=== PATIENT | female | born 1995 | race Caucasian/White ===

== ENCOUNTER → 2016-04-24 | Outpatient (CLI) | payer OTHER ==
[2016-04-24 13:25] LABS: ALBUMIN 4.1 GM/DL (3.2-5.2); ALBUMIN/GLOBULIN RATIO 1.14 (1.00-1.93); ALKALINE PHOSPHATASE 71 U/L (45-117); ALT/SGPT 30 U/L (12-78); ANION GAP 7 MEQ/L (8-16); AST/SGOT 15 U/L (15-37); BILIRUBIN,TOTAL 0.6 MG/DL (0.2-1.0); BLOOD UREA NITROGEN 7 MG/DL (7-18); CALCIUM LEVEL 8.8 MG/DL (8.5-10.1); CARBON DIOXIDE LEVEL 29 MEQ/L (21-32); CHLORIDE LEVEL 105 MEQ/L (98-107); CREATININE FOR GFR 0.85 MG/DL (0.55-1.02); FREE T4 1.02 NG/DL (0.76-1.46); GLOMERULAR FILTRATION RATE > 60.0 (>60); GLUCOSE, FASTING 90 MG/DL (70-105); SODIUM LEVEL 141 MEQ/L (136-145); TOTAL PROTEIN 7.7 GM/DL (6.4-8.2)
== END ==
LOC: M LAB 11:52
PROVIDERS: ATTEND Family Medicine
DX: Z13.29 Encounter for screening for other suspected endocrine disorder (principal)

== ENCOUNTER → 2016-06-04 | Outpatient (CLI) | payer OTHER ==
[2016-06-04 18:37] LABS: BASO % 0.1 % (0.0-1.0); EOS # 0.1 K/mm3 (0.0-0.50); LARGE UNSTAINED CELL # 0.1 K/mm3 (0.0-0.4); LARGE UNSTAINED CELL % 1.2 % (0.0-4.0); LYMPH # 2.4 K/mm3 (1.5-6.5); LYMPH % 22.2 % (24.0-44.0); MEAN CORPUSCULAR HEMOGLOBIN 30.2 pg (27.0-33.0); MEAN CORPUSCULAR HGB CONC 34.7 g/dl (32.0-36.5); MONO # 0.4 K/mm3 (0.0-0.8); MONO % 3.5 % (0.0-5.0); NEUTROPHILS # 7.5 K/mm3 (1.8-7.7); PLATELET COUNT, AUTOMATED 224 k/mm3 (150-450); RED CELL DISTRIBUTION WIDTH 12.3 % (11.5-14.5); WHITE BLOOD COUNT 10.4 K/mm3 (4.0-10.0)
[2016-06-05 14:18] LABS: CONTROL LINE INT CTR LINE PRESENT; HIV SCRN NEGATIVE (NEGATIVE); HIV SCRN1 NEGATIVE (NEGATIVE)
[2016-06-06 10:45] LABS: HBsAg Prenatal NEGATIVE (NEGATIVE)
== END ==
LOC: M LAB 17:16
PROVIDERS: ATTEND Specialist
DX: Z34.81 Encounter for supervision of other normal pregnancy, first trimester (principal)

== ENCOUNTER → 2016-08-06 | Outpatient (CLI) | payer OTHER ==
--- NOTE | 2016-08-07 04:18 | REP ---
Clinical: Anatomical evaluation. Comparison: None . Findings: Examination demonstrates a single live intrauterine in breech presentation. motion is identified by technologist. Placenta is noted anteriorly and grade zero without evidence for placenta previa or abruption. [place] raises the possibility of uterine synechia and along the left lateral margin of the lower uterine segment. Amniotic fluid volume is normal. Cervix measures 3.9 cm in length and appears closed. No evidence for nuchal cord. Gestational age by current measurements 18 weeks 2 days with VALERIA 01/05/2017 . FHR equals 153 beats per minute. BPD 4.3 cm 19 weeks 0 days HC 15.0 cm 18 weeks 0 days AC 12.7 cm 18 weeks 2 days FL 2.8 cm 18 weeks 3 days HL 2.7 cm 18 weeks 3 days HC/AC ratio 1.18 Estimated weight 236 grams ( 46th percentile). Anatomical assessment demonstrates normal structures including cranium, choroid plexus, cavum, cerebellum/posterior fossa, facial features, lungs, four-chamber heart/ventricular outflow tracts, diaphragm, stomach, cord insertion/three-vessel cord, kidneys/bladder, spine, and extremities. Impression: 1. Single live intrauterine in breech presentation. 2. Uterine synechia cannot be excluded and may warrant followup. 3. Facial profile inadequately evaluated. Remainder of the anatomical assessment is complete and normal. Signed by Viral Rodriguez MD 08/07/2016 04:10 A
== END ==
LOC: M SMT 09:46
PROVIDERS: ATTEND Specialist
DX: Z34.82 Encounter for supervision of other normal pregnancy, second trimester (principal)

== ENCOUNTER 2016-08-11 16:07 | Emergency (ER) | payer OTHER ==
[~2016-08-11] VITALS: Ht 160 cm; Wt 75.7 kg
[2016-08-11] MEDS ORDERED: ACETAMINOPHEN 325 MG TAB PO ONE (19:30)
[2016-08-11 20:48] VITALS: BP 126/56
--- NOTE | 2016-08-12 08:34 | REP ---
Clinical: Acute trauma. Evaluate . Technique: Limited obstetrical ultrasound using curved array transducer along with color Doppler evaluation. Findings: Ultrasound examination demonstrates a single live intrauterine in breech presentation. motion is appreciated. heart rate equals 155 beats per minute. Placenta is noted posteriorly and grade zero without evidence for placenta previa. Cervix measures 3 cm in length and appears closed. Amniotic fluid volume is normal (DIANA equals 12.0 cm). Incidental note is made of a uterine synechia along the left side of the uterus. Nuchal cord cannot be excluded. Impression: Single live intrauterine in breech presentation. No gross abnormalities or evidence for injury. Nuchal cord cannot be excluded. 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 Signed by Viral Rodriguez MD 08/12/2016 08:26 A
--- NOTE | 2016-08-12 17:30 | ED PDOC ---
Post-Departure Follow-Up dr finch faxed formal report of ob us for fu Jethro Ramsey MD August 12, 2016 17:30
== END 2016-08-11 20:50 | disposition home or self-care (01) ==
LOC: M ED 17:27
DX: O9A.212 Injury, poisoning and certain other consequences of external causes complicating pregnancy, second trimester (principal); S39.91XA Unspecified injury of abdomen, initial encounter; W22.8XXA Striking against or struck by other objects, initial encounter; Y92.002 Bathroom of unspecified non-institutional (private) residence as the place of occurrence of the external cause; Y93.E1 Activity, personal bathing and showering; Y99.8 Other external cause status; Z3A.19 19 weeks gestation of pregnancy

== ENCOUNTER → 2016-08-18 | Outpatient (CLI) | payer OTHER ==
--- NOTE | 2016-08-18 09:20 | REP ---
Clinical: Anatomical evaluation. Comparison: 08/11/2016 . Findings: Examination demonstrates a single live intrauterine in breech presentation. motion is identified by technologist. Placenta is noted posteriorly and grade zero without evidence for placenta previa or abruption. The placental tip measures 3.2 cm from the closed internal os. A synechia along the left lower uterine segment is again identified. Amniotic fluid volume is normal. Cervix measures 3.5 cm in length and appears closed. Nuchal cord cannot be excluded. Gestational age by LMP 19 weeks 6 days with VALERIA 01/06/2017 . Gestational age by current measurements 20 weeks 0 days with VALERIA 01/05/2017 . FHR equals 157 beats per minute. Anatomical assessment demonstrates normal structures including cranium, choroid plexus, cavum, cerebellum/posterior fossa, facial features, lungs, diaphragm, stomach, cord insertion/three-vessel cord, kidneys/bladder, spine, and extremities. Impression: 1. Single live intrauterine in breech presentation. 2. Nuchal cord cannot be excluded. 3. Synechia along the left lower uterine segment is again identified. 4. In conjunction with prior examination, anatomical assessment is complete and normal. Signed by Viral Rodriguez MD 08/18/2016 09:13 A
== END ==
LOC: M SMT 08:05
PROVIDERS: ATTEND Specialist
DX: Z34.82 Encounter for supervision of other normal pregnancy, second trimester (principal)

== ENCOUNTER → 2016-10-08 | Outpatient (CLI) | payer OTHER ==
[~2016-10-08] MED LIST: ACET50TA PO; IBUP-1114 PO; PRENTAB9 PO
[2016-10-09 10:04] LABS: BASO % 0.3 % (0.0-1.0); EOS # 0.2 K/mm3 (0.0-0.50); LARGE UNSTAINED CELL # 0.2 K/mm3 (0.0-0.4); LARGE UNSTAINED CELL % 1.9 % (0.0-4.0); LYMPH # 2.2 K/mm3 (1.5-6.5); LYMPH % 17.9 % (24.0-44.0); MEAN CORPUSCULAR HEMOGLOBIN 31.6 pg (27.0-33.0); MEAN CORPUSCULAR HGB CONC 35.1 g/dl (32.0-36.5); MONO # 0.6 K/mm3 (0.0-0.8); MONO % 5.2 % (0.0-5.0); NEUTROPHILS % 72.7 % (36.0-66.0); PLATELET COUNT, AUTOMATED 227 k/mm3 (150-450)
== END ==
LOC: M SMT 13:56
PROVIDERS: ATTEND Advanced Practice Midwife
DX: Z34.83 Encounter for supervision of other normal pregnancy, third trimester (principal)

== ENCOUNTER → 2016-12-11 | Outpatient (REF) | payer OTHER | LOC: M LAB REF 17:14 | PROVIDERS: ATTEND Advanced Practice Midwife | DX: Z34.83 Encounter for supervision of other normal pregnancy, third trimester (principal) ==

== ENCOUNTER 2017-01-06 01:58 | Inpatient (IN) | payer OTHER ==
[2017-01-06] VITALS (45 sets, daily range): BP systolic 90–142; BP diastolic 51–87
[~2017-01-06] VITALS: Ht 160 cm; Wt 84.5 kg
[2017-01-06] MEDS ORDERED: LACTATED RINGER'S 1000 ML IV STA (02:39)
--- NOTE | 2017-01-06 03:01 | HPEPDOC ---
General Date of Admission 01/06/2017 Other Providers [facility] Attending Physician: DEBO LEE DO Chief Complaint The patient is a 21-year-old female admitted with a reason for visit of ?ROM , clear fluid at 0115 this morning. Denies regular contractions or bleeding. Fetus is active Source: Patient, Family Exam Limitations: No limitations Associated Symptoms: Denies Symptoms History of Present Illness 21-year-old 2, para 0, 010, estimated date of delivery 01/06/2017. Presents at 40 weeks gestation with reports of spontaneous rupture of membranes this morning, large amount of clear fluid. Denies regular contractions. Fetus is active. Last normal menstrual period 04/01/2016 for estimated date of delivery of 2016, sonogram at 10 weeks confirmed her date. Anatomy scan was found to be within normal limits with the exception of a possible uterine synechiae along the left lateral margin of the lower uterine segment. has been complicated by pupps. OB history October 2013, miscarriage at approximately 9 weeks. No known drug allergies. She is allergic to tape and unknown antidepressant. Medical/Surgical: history of depression, seasonal allergies, right shoulder surgery with unknown complication due to anesthesia. Family history is significant for diabetes, thyroid dysfunction, asthma. Social : patient is . Father of the baby is present and supportive. She denies tobacco, alcohol, drugs or abuse. Denies history of sexually transmitted infections. Objective: prepregnancy weight 167, total weight gain 19 pounds Labs O+, antibody negative, rubella immune, VDRL, hep B, hep C, HIV, gonorrhea and chlamydia were all negative. Declined genetic screening. One-hour glucose was 111. And group B strep is negative. She is in no apparent distress coping well. Abdomen is soft, gravid, longitudinal lie. Rare uterine contractions are noted on the monitor. heart 145. Minimal to moderate variability with accelerations. Large amount of clear fluid draining per vagina. Sterile vaginal exam 1 cm, 50% effaced, -3 station, cephalic. A: 21-year-old 2, para 0010 at 40 weeks gestation with spontaneous rupture of membranes for clear fluid. Rare contractions. Reassuring status. P: Admit and hydrate. Cytotec orally for cervical ripening. Patient is undecided about coping methods for her labor. Anticipate cervical ripening and normal spontaneous vaginal . Home Medications No Active Prescriptions or Reported Meds Allergies Coded Allergies: TAPE (Verified Allergy, Intermediate, 01/06/17) IRRITATION No Known Drug Allergy (Verified Allergy, Unknown, 08/11/16) Teresita Boyer CNM Jan 06, 2017 03:01
[2017-01-06] MEDS: miSOPROStol 50 MCG 1/2 TAB (S0191) PO SCH ×2 (03:29→07:30)
[2017-01-06 03:31] LABS: MEAN CORPUSCULAR HEMOGLOBIN 28.8 pg (27.0-33.0); MEAN CORPUSCULAR HGB CONC 33.6 g/dl (32.0-36.5); MEAN CORPUSCULAR VOLUME 85.8 fl (80.0-96.0); RED CELL DISTRIBUTION WIDTH 12.7 % (11.5-14.5); WHITE BLOOD COUNT 10.5 10^3/uL (4.0-10.0)
[2017-01-06] MEDS ORDERED: LR 1,000 ML IV SCH (12:54)
[2017-01-06] MEDS ORDERED: OXYTOCIN DRIP 30 UNITS in APPROPRIATE DILUENT 1 EA IV SCH (13:00)
[2017-01-06] MEDS ORDERED: FENTANYL 2MCG/ML ROPIVACAINE 0.2% IN 0.9% NACL 200ML IVBAG As Ordered ONE (19:45)
[2017-01-06] MEDS ORDERED: ePHEDrine SULFATE 25 MG/5 ML(5MG/ML) SYRINGE As Ordered ONE (20:51)
[2017-01-06] MEDS ORDERED: diphenhydrAMINE INJ 50MG/ML VIAL (J1200) IV PRN (21:00)
[2017-01-06] MEDS ORDERED: FENTANYL/ROPIVACAINE/NACL BAG 200 ML EPIDURAL SCH (21:00)
[2017-01-06] MEDS ORDERED: LACTATED RINGER'S 1000 ML IV PRN (21:00)
[2017-01-06] MEDS ORDERED: EPIDURAL COMMENT XX SCH (21:00)
[2017-01-06] MEDS ORDERED: NALOXONE INJ 0.4 MG/1 ML VIAL (J2310) IV PRN (21:00)
[2017-01-06] MEDS ORDERED: ONDANSETRON 4MG/2ML VIAL (J2405) IV PRN (21:00)
[2017-01-06] MEDS ORDERED: ePHEDrine SULFATE 25 MG/5 ML(5MG/ML) SYRINGE IV PRN (21:00)
[2017-01-06] MEDS ORDERED: EPIDURAL/PCA KEYS XX PRN (21:00)
[2017-01-06] MEDS ORDERED: REFRIGERATOR IV KEYS XX PRN (21:00)
[2017-01-07] VITALS (21 sets, daily range): BP systolic 92–141; BP diastolic 52–87
[2017-01-07] MEDS ORDERED: ONDANSETRON 4MG/2ML VIAL (J2405) IV PRN (04:15)
[2017-01-07] MEDS ORDERED: IBUPROFEN 800 MG TAB PO PRN (04:15)
[2017-01-07] MEDS ORDERED: RHOGAM 300 MCG (1500 IU) INJ (J2790) IM SCH (04:15)
[2017-01-07] MEDS ORDERED: MEASLES,MUMPS,RUBELLA VACCINE INJ (MMR-II) (90707) SC SCH (04:15)
[2017-01-07] MEDS ORDERED: DOCUSATE SODIUM 100 MG CAP PO PRN (04:15)
[2017-01-07] MEDS ORDERED: METHYLERGONOVINE MALEATE 0.2 MG TAB PO PRN (04:15)
[2017-01-07] MEDS ORDERED: OXYTOCIN DRIP 30 UNITS in APPROPRIATE DILUENT 1 EA IV ONE (04:15)
[2017-01-07] MEDS ORDERED: DIBUCAINE 1% OINTMENT 30GM TOP PRN (04:15)
[2017-01-07] MEDS: PRENATAL VITAMINS CHEWABLE TABLET PO SCH (08:03)
--- NOTE | 2017-01-07 11:02 | DN ---
DATE: 01/07/2017 PREDELIVERY DIAGNOSIS: Term , labor. POSTDELIVERY DIAGNOSIS: Delivered. PROCEDURE: Spontaneous vaginal delivery. ROUTE AGENT: Dr. Archie Serrano ANESTHESIA: Epidural. ESTIMATED BLOOD LOSS: 300 mL. FINDINGS: 7 pound 5 ounce female infant, Apgars 8 and 9. DELIVERY SUMMARY: The patient had spontaneous delivery of a 7 pound 5 ounce female with Apgars 8 and 9 under epidural anesthesia. There was no nuchal cord. The shoulders delivered spontaneously with ease. The cried spontaneously and was handed to the mother. The cord was doubly clamped and cut. Placenta delivered spontaneously and appeared to be intact. The patient received IV Pitocin immediately after delivery of the placenta. There were no vaginal lacerations. Sponge and instrument counts correct.
[2017-01-08 06:00] VITALS: BP 99/55
[2017-01-08] MEDS: PRENATAL VITAMINS CHEWABLE TABLET PO SCH (07:50)
[2017-01-08] MEDS: ACETAMINOPHEN 500 MG TAB PO PRN ×2 (07:52→14:30)
[2017-01-08 18:02] VITALS: BP 105/61
[2017-01-09 06:00] VITALS: BP 102/57
[2017-01-09] MEDS: PRENATAL VITAMINS CHEWABLE TABLET PO SCH (07:41)
[2017-01-09] MEDS: ACETAMINOPHEN 500 MG TAB PO PRN (07:43)
[2017-01-09] MEDS ORDERED: ACET50TA PO (09:11)
[2017-01-09] MEDS ORDERED: IBUP-1114 PO (09:11)
[2017-01-09] MEDS ORDERED: PRENTAB9 PO (09:11)
== END 2017-01-09 12:30 | disposition home or self-care (01) | DRG 775 ==
LOC: M LDO 01:58 → M LDI 02:55 → M OBS 01-07 05:41
PROVIDERS: ADMIT Advanced Practice Midwife; ATTEND Advanced Practice Midwife
PROC: 10E0XZZ Delivery of Products of Conception, External Approach (ICD-10-PCS; principal; 2017-01-07)
DX: O48.0 Post-term pregnancy (principal); Z37.0 Single live birth; Z3A.40 40 weeks gestation of pregnancy

== ENCOUNTER 2018-05-14 23:13 | Inpatient (IN) | payer OTHER ==
[~2018-05-14] VITALS: Ht 160 cm; Wt 84.3 kg
[~2018-05-14 23:13] MED LIST changes: -ACET50TA PO; +MAPA500T2 PO
[2018-05-14 23:37] VITALS: BP 114/67
[2018-05-15] VITALS (10 sets, daily range): BP systolic 97–115; BP diastolic 48–68
[2018-05-15] MEDS ORDERED: ANTA500C PO (00:05)
[2018-05-15] MEDS ORDERED: LACTATED RINGER'S 1000 ML IV ONE (00:45)
[2018-05-15 01:48] LABS: HEMATOCRIT 31.6 % (36.0-47.0); HEMOGLOBIN 10.4 g/dl (12.0-15.5); MEAN CORPUSCULAR HEMOGLOBIN 26.9 pg (27.0-33.0); MEAN CORPUSCULAR HGB CONC 32.9 g/dl (32.0-36.5); MEAN CORPUSCULAR VOLUME 81.9 fl (80.0-96.0); PLATELET COUNT, AUTOMATED 212 10^3/uL (150-450); RED BLOOD COUNT 3.86 10^6/uL (4.00-5.40); WHITE BLOOD COUNT 9.4 10^3/uL (4.0-10.0)
[2018-05-15] MEDS: LR 1,000 ML IV SCH ×5 (01:57→15:51)
--- NOTE | 2018-05-15 04:41 | NUR ---
0500 contractions q 4 minutes Catagory 1 moderate intensity very high presenting part us to confirm vertex will need meso or Pitocin to augment safe to proceed
--- NOTE | 2018-05-15 06:19 | NUR ---
0530 hours 1 deceleration 6 minutes spontaneous recovery positional change to category 1 strip spontaneous contractions still vertex
[2018-05-15] MEDS: PRENATAL VITAMINS CHEWABLE TABLET PO SCH (09:00)
--- NOTE | 2018-05-15 09:40 | IPNPDOC ---
Text Note Date of Service The patient was seen on 05/15/18. NOTE SBAR from Dr Back at 0830 Brought in due to presence of late decels with nonreg ctx's. 2 prolonged decels prior to my arrival. Since my arrival, late decels noted with most ctx's, however they are not reg. Mostly mod darwin throughout. Cx: Unable to reach the inner os and baby is ballotable, Dr Back did an US and was vtx a/p: Due to remote from del status and non-augmentable FHT and baby not even in the pelvis, I rec a PCD despite her already having had a baby. Too high, impossible to AROM. Informed consent obtained. OR team mobilizing. Not an emergency, but urgent, will need Dr Serrano for assistance. Sessions VS,Jennifer, I+O VSJennifer, I+O Laboratory Tests 05/15/18 01:39 Red Blood Count 3.86 L, Mean Corpuscular Volume 81.9, Mean Corpuscular Hemoglobin 26.9 L, Mean Corpuscular Hemoglobin Concent 32.9, Red Cell Distribution Width 13.0 Vital Signs Date Time Temp Pulse Resp B/P (MAP) Pulse Ox O2 Delivery O2 Flow Rate FiO2 05/15/18 04:22 98.6 78 16 114/57 (76) SESSIONS,SRINIVAS Arzate MD May 15, 2018 09:40
[2018-05-15] MEDS ORDERED: BICITRA 30ML SOLN UDC PO ONE (09:45)
--- NOTE | 2018-05-15 09:45 | HPE ---
DATE OF ADMISSION: 05/15/2018 22 old 3, para 1, at 41, LMP 07/19/2018, EDC 05/13/2018 at 40 and 2 weeks of gestation with contractions 4 minutes apart breathing through them and the intensity is increasing. She does not have ruptured membranes. Risk factor: BMI is 30.6 and she has a rash NYD. PAST HISTORY: 10/29/2014 spontaneous at 8 weeks. 2017 at 40 weeks spontaneous vaginal delivery female 7 pounds 5 ounces. Labs show O+, HIV negative, hep negative, RPR negative, rubella immune. Varicella immune. Pap normal. Urine is mixed kavitha. Gonorrhea and chlamydia negative. Early 1-hour GTT was 111. 28-week GTT was 84. GBS negative. Blood pressure is 114/62, respirations 18, pulse 67, temperature 98.2. She appears distressed. Symphysis fundus height is 40, vertex high 1 cm posterior. Intact membranes. She has a category 1 strip, normocephalic, atraumatic. Neck: Full range of motion. Pupils equal and reactive to light. Distal pulses symmetric. No evidence of DVT, PE or superficial phlebitis. Chest is clear bilaterally at bases with no wheezes or rhonchi. No CVA tenderness. Four quadrant bowel sounds are noted. She has a rash undiagnosed, is seeing dermatology. No lesions. No pustules and she has some tattoos. No pruritus. No arthralgia, myalgia. No complaint of joint pain. She has no complaint of cough, wheeze, shortness of breath or dyspnea on exertion. Not bleeding. Neuro complete. No incontinency, urgency or frequency. No nausea, vomiting, diarrhea or constipation. No diabetic issues. She has no gyne history. Past medical, surgical and family history noncontributory. Does not smoke, drink, abuse drugs. No domestic violence. to a soldier. Good support system. In summary, we have a term gestation, active labor, prodromal very early. Anticipate will kick into labor on her own. Epidural as required.
[2018-05-15] MEDS ORDERED: OXYTOCIN INJ 10 UNITS/ML VIAL (J2590) As Ordered ONE (13:48)
[2018-05-15] MEDS ORDERED: MORPHINE PRES-FREE INJ 10 MG/10 ML VIAL (J2274) As Ordered ONE (13:48)
[2018-05-15] MEDS ORDERED: KETOROLAC 60 MG/2 ML VIAL (J1885) As Ordered ONE (13:51)
[2018-05-15] MEDS ORDERED: ONDANSETRON 4MG/2ML VIAL (J2405) As Ordered ONE ×2 (13:51→15:56)
[2018-05-15] MEDS ORDERED: NALOXONE INJ 0.4 MG/1 ML VIAL (J2310) IV PRN ×2 (13:54)
[2018-05-15] MEDS ORDERED: ONDANSETRON 4MG/2ML VIAL (J2405) IV PRN (13:54)
[2018-05-15] MEDS ORDERED: NALBUPHINE HCL 10 MG/ML AMP (J2300) IV PRN (13:54)
[2018-05-15] MEDS ORDERED: diphenhydrAMINE INJ 50MG/ML VIAL (J1200) IV PRN (13:54)
[2018-05-15] MEDS ORDERED: METOCLOPRAMIDE INJ 10MG/2ML VIAL (J2765) IV PRN ×2 (13:54→15:30)
[2018-05-15] MEDS ORDERED: ePHEDrine SULFATE 25 MG/5 ML(5MG/ML) SYRINGE As Ordered ONE (14:03)
[2018-05-15] MEDS ORDERED: OXYTOCIN DRIP 30 UNITS in APPROPRIATE DILUENT 1 EA IV SCH (15:20)
[2018-05-15] MEDS ORDERED: OXYTOCIN 30 UNITS IN 0.9% NaCl 500ML IV BAG (J2590) As Ordered ONE (15:28)
[2018-05-15] MEDS ORDERED: MEASLES,MUMPS,RUBELLA VACCINE INJ (MMR-II) (90707) SC SCH (15:30)
[2018-05-15] MEDS ORDERED: RHOGAM 300 MCG (1500 IU) INJ (J2790) IM SCH (15:30)
[2018-05-15] MEDS ORDERED: fentaNYL 100 MCG/2 ML INJECTION (J3010) IV PRN (15:30)
[2018-05-15] MEDS ORDERED: PERCOCET 5MG/325MG TAB PO PRN (15:30)
[2018-05-15] MEDS ORDERED: NORCO, ANEXSIA 5/325MG TABLET (HYDROcodone/ACETAMINOPHEN) PO PRN ×2 (15:30)
[2018-05-15] MEDS: ONDANSETRON 4MG/2ML VIAL (J2405) IV PRN ×2 (15:50→20:05)
[2018-05-15] MEDS: KETOROLAC 30 MG/ML VIAL (J1885) IV SCH (20:06)
[2018-05-15] MEDS: DOCUSATE SODIUM 100 MG CAP PO SCH (20:20)
[2018-05-16] MEDS: LR 1,000 ML IV SCH (01:30)
[2018-05-16 02:00] VITALS: BP 113/56
[2018-05-16] MEDS: KETOROLAC 30 MG/ML VIAL (J1885) IV SCH ×2 (02:09→07:47)
[2018-05-16 06:00] VITALS: BP 105/51
[2018-05-16 06:12] LABS: HEMATOCRIT 26.2 % (36.0-47.0); HEMOGLOBIN 8.5 g/dl (12.0-15.5); MEAN CORPUSCULAR HEMOGLOBIN 26.7 pg (27.0-33.0); MEAN CORPUSCULAR HGB CONC 32.4 g/dl (32.0-36.5); MEAN CORPUSCULAR VOLUME 82.4 fl (80.0-96.0); PLATELET COUNT, AUTOMATED 174 10^3/uL (150-450); RED BLOOD COUNT 3.18 10^6/uL (4.00-5.40); WHITE BLOOD COUNT 8.9 10^3/uL (4.0-10.0)
--- NOTE | 2018-05-16 09:19 | IPNPDOC ---
Text Note Date of Service The patient was seen on 05/16/18. NOTE POD1 PCD States feeling well, pain controlled with prescribed meds. Baby bonding and feeding well. No heavy VB. Lochia slowing. Ambulatory. Tolerating PO without issues. UO adequate overnight. VSSAF NAD A&O RRR CTAB LE no C/C/E Ut at U-2, firm Bandage C/D/I CBC this AM appropriate a/p: Doing well. Cont routine postop care. D/C tomorrow likely. Sessions Jennifer AGUILERA, I+O VSJennifer I+O Laboratory Tests 05/16/18 05:39 Red Blood Count 3.18 L, Mean Corpuscular Volume 82.4, Mean Corpuscular Hemoglobin 26.7 L, Mean Corpuscular Hemoglobin Concent 32.4, Red Cell Distribution Width 13.2 Vital Signs Date Time Temp Pulse Resp B/P (MAP) Pulse Ox O2 Delivery O2 Flow Rate FiO2 05/16/18 06:00 96.9 70 16 105/51 (69 98 I&O- Last 24 Hours up to 6 AM 05/16/18 05:59 Intake Total 2362 ml Output Total 1850 ml Balance 512 ml SESSIONS,SRINIVAS Arzate MD May 16, 2018 09:19
[2018-05-16 10:00] VITALS: BP 104/67
[2018-05-16] MEDS: PRENATAL VITAMINS CHEWABLE TABLET PO SCH (10:04)
[2018-05-16] MEDS: DOCUSATE SODIUM 100 MG CAP PO SCH ×2 (10:04→20:36)
[2018-05-16 14:00] VITALS: BP 109/73
[2018-05-16] MEDS: IBUPROFEN 800 MG TAB PO SCH ×2 (16:09→23:52)
[2018-05-16 18:00] VITALS: BP 102/54
[2018-05-16 22:28] VITALS: BP 108/64
[2018-05-17 02:24] VITALS: BP 99/54
[2018-05-17 06:35] VITALS: BP 108/60
--- NOTE | 2018-05-17 08:02 | IPNPDOC ---
Text Note Date of Service The patient was seen on 05/17/18. NOTE POD2 PCD States feeling well, pain controlled with prescribed meds, although not using any narcotics. Baby bonding and feeding well. No heavy VB. Lochia slowing. Ambulatory. Tolerating PO without issues. UO adequate. VSSAF NAD A&O RRR CTAB LE no C/C/E Ut at U-2, firm Bandage C/D/I a/p: Doing well. Cont routine postop care. D/C today. Sessions VS,Jennifer, I+O VSJennifer, I+O Vital Signs Date Time Temp Pulse Resp B/P (MAP) Pulse Ox O2 Delivery O2 Flow Rate FiO2 05/17/18 06:35 97.0 86 16 108/60 (76) 05/17/18 02:24 97 I&O- Last 24 Hours up to 6 AM 05/17/18 06:00 Output Total 1525 ml Balance -1525 ml SESSIONS,SRINIVAS Arzate MD May 17, 2018 08:02
--- NOTE | 2018-05-17 08:12 | DS.PDOC ---
Discharge Summary General Date of Admission May 15, 2018 at 00:43 Date of Discharge [id number] Discharge Summary ADMITTING DIAGNOSES: labor DISCHARGE DIAGNOSES: Primary delivery HOSPITAL COURSE: Admitted and delivery recommended and done by Dr Kelly for unprovoked NRFHT and remote from delivery status. Had an uncomplicated low-transverse . course uncomplicated. DISCHARGE MEDICATIONS: Motrin, Lanolin, Colace, [place], Nor QD DISCHARGE INSTRUCTIONS: Nothing in the vagina for 6 weeks. No driving for 2 weeks. No immersion of incision in dirty water for 4 weeks. F/U in OBGYN clinic 1-[address] Back and in 6-8 weeks. Sessions Vital Signs/I&Os Vital Signs Date Time Temp Pulse Resp B/P (MAP) Pulse Ox O2 Delivery O2 Flow Rate FiO2 05/17/18 06:35 97.0 86 16 108/60 (76) 05/17/18 02:24 97 I&O- Last 24 Hours up to 6 AM 05/17/18 06:00 Output Total 1525 ml Balance -1525 ml Discharge Medications Miscellaneous Medications Calcium Carbonate (Antacid) 500 Mg Chw, 500 MG PO, (Reported) Allergies Coded Allergies: TAPE (Verified Allergy, Intermediate, 05/15/18) IRRITATION Uncoded Allergies: ANESTHESIA (Allergy, Severe, 05/15/18) GENERAL - "STOPPED BREATHING" ANTIDEPRESSANTS (Adverse Reaction, Intermediate, INCREASED DEPRESSION, 01/06/17) SESSIONS,SRINIVAS Arzate MD May 17, 2018 08:12
[2018-05-17] MEDS: PRENATAL VITAMINS CHEWABLE TABLET PO SCH (08:17)
[2018-05-17] MEDS: IBUPROFEN 800 MG TAB PO SCH (08:18)
[2018-05-17] MEDS: DOCUSATE SODIUM 100 MG CAP PO SCH (08:18)
[2018-05-17] MEDS ORDERED: PRENTAB9 PO (09:02)
[2018-05-17] MEDS ORDERED: NORC1TAB4 PO (09:02)
[2018-05-17] MEDS ORDERED: IBUP-1114 PO (09:02)
[2018-05-17] MEDS ORDERED: COLA100C5 PO (09:02)
--- NOTE | 2018-05-18 16:43 | RO ---
DATE OF PROCEDURE: 05/15/2018 PREOPERATIVE DIAGNOSES: Nonreassuring heart tracing, remote from delivery, unengaged fetus. POSTOPERATIVE DIAGNOSES: Nonreassuring heart tracing, remote from delivery, unengaged fetus. PROCEDURE: Primary low transverse section. SURGEON: Dr. Manohar Kelly METAL BENCH PATTERNMAKER: Dr. Arhcie Serrano, who was essential in retracting tissue layers for delivery of the and very needed for assistance in closing all the tissue layers thereafter. ANESTHESIA: Spinal. ESTIMATED BLOOD LOSS: 500 mL. DRAINS: Klein catheter with 50 mL of clear urine at the end of the case FLUIDS REPLACED: 1500 mL of lactated Ringer's. PREOPERATIVE ANTIBIOTICS: Ancef 2 grams IV. FINDINGS: Clear fluid after low transverse uterine incision, scores 9 and 9, 3320 grams, 7-pound 5-ounce female. Floating vertex. Of note, there was a loose nuchal cord and a true knot, and the patient also had an arcuate uterus with a 1-2 inch long septum in the midline. SPECIMENS: None. INDICATION: Patient was admitted after decelerations were noted on her tracing after she came to triage overnight with painful contractions. She had two prolonged decelerations overnight and many intermittent late decelerations. The fetus was unengaged in the pelvis, and I could not even get to the presenting part when I did my initial exam after taking over for Dr. Back at 8:30 this morning. Because it was not safe to perform an amniotomy and I could not even get through the inner os of the cervix and with the tracing present, being that I could not start Pitocin safely, I recommended we undergo a primary delivery due to nonreassuring heart tracing, remote from delivery, and unengaged fetus. Patient agreed. Informed consent was obtained, and the operating room team was mobilized. DESCRIPTION OF PROCEDURE: Patient was placed in the dorsal supine position with a leftward tilt and prepped and draped in normal sterile fashion. Prior to prep and drape, a Klein catheter was placed; and prior to this, spinal anesthetic was easily obtained. After she was draped, we confirmed that the spinal anesthetic was indeed adequate and a Pfannenstiel skin incision was carried down to the layer of fascia, which was nicked in the midline and extended bilaterally extent of the skin incision. [place] clamps were placed on the superior and inferior aspects of the fascial incision, and midline rectus muscles were dissected off sharply. Rectus muscles were in midline and bluntly entered the peritoneal cavity with my digit and, using a stretching maneuver, created an adequate peritoneal window. Bladder blade was placed. Bladder flap was easily created. At this time, we noted there were several very large dilated sinuses at the lower uterine segment; therefore, we prepared for significant bleeding. With a clean knife, a low transverse uterine incision was performed down to the layer of the amnion, which was nicked and clear fluid was noted. This incision was extended bilaterally just enough to admit the infant's head. With fundal pressure and flexing the head and elevating the head, I was able to deliver the without any delay through the incision, onto her legs, in good shape with a spontaneous cry and good tone. Cord was clamped times two and cut, and cord blood was obtained. Infant was shown to the parents and taken to the resuscitation table. Pitocin was started wide open and the uterus was massaged until I felt the uterus glenna with the effects of the Pitocin, and the placenta was delivered intact with traction. All trailing membranes were easily removed. Uterus was delivered through the abdomen, wrapped in warm sponge, and closed with a running locked suture of #0 Vicryl from left to right. #0 Monocryl was used to imbricate the low transverse uterine incision. As I stated before, there were several sinuses that needed oversewing, and this was done with both #2-0 and #0 Vicryl. There was a hematoma that formed about the size of a quarter on the left superior aspect of the uterine incision, and I oversewed this with a large figure-of-8 suture successfully. We observed the incision for a few minutes, ensuring that there was indeed hemostasis. We then irrigated behind the uterus and returned to the uterus to its anatomical position inside the abdomen. Hemostasis was noted except for one area, which was oversewn, and hemostasis again confirmed. Colic gutters were cleared of all clots and debris times two, and naps were placed at the peritoneal edges times three. We then closed the peritoneum without difficulty from superior to inferior. Rectus bellies were hemostatic. Small amount of subcutaneous bleeds were noted and cauterized. Fascia was closed from left to right with a running #0 Vicryl, and the subcutaneous tissue was copiously irrigated and then closed with running #2-0 Vicryl. Skin was closed with #4-0 Monocryl in subcuticular fashion, and an Optifoam dressing was placed. I then froglegged the patient and, with a bimanual exam, cleared the lower uterine segment, cervix, and vagina of all clots and debris. The uterus was firm at U -1. All counts were correct, including sponge, needle, and instruments.
== END 2018-05-17 11:25 | disposition home or self-care (01) | DRG 773 ==
LOC: M LDO 23:13 → M LDI 05-15 00:43 → M OBS 05-15 16:26
PROVIDERS: ADMIT Obstetrics & Gynecology; ATTEND Obstetrics & Gynecology
PROC: 10D00Z1 Extraction of Products of Conception, Low, Open Approach (ICD-10-PCS; principal; 2018-05-15)
DX: O48.0 Post-term pregnancy (principal); Z37.0 Single live birth; Z3A.41 41 weeks gestation of pregnancy; O76 Abnormality in fetal heart rate and rhythm complicating labor and delivery; O69.2XX0 Labor and delivery complicated by other cord entanglement, with compression, not applicable or unspecified; Q51.810 Arcuate uterus; O34.593 Maternal care for other abnormalities of gravid uterus, third trimester